=== PATIENT | male | born 1985 | race Caucasian/White ===

== ENCOUNTER 2018-09-26 09:52 | Inpatient (IN) ==
[2018-09-26] MEDS ORDERED: Ipratropium/Albuterol Neb 3 ML IH ONE (10:13)
--- NOTE | 2018-09-26 10:17 | Emergency Department Note ---
Disposition Clinical Impression: Leukocytosis Pneumonia Qualifiers: Pneumonia type: due to unspecified organism Laterality: right Lung location: lower lobe of lung Qualified Code(s): J18.9 - Pneumonia, unspecified organism Disposition: Admitted As Inpatient Condition: Fair Time of Disposition: 12:10 General Adult HPI - General Chief complaint: ED General Medical Stated complaint: "Not doing good" - think he has pneumonia? Time Seen by Provider: 09/26/18 10:09 - History of Present Illness HPI Narrative: Patient is a 31-year-old gentleman who is nonverbal who returned back to the [facility] where he lives at this weekend after being around some individuals had upper respiratory infection. Patient has had a runny nose has been coughing and the caregivers noticed that he had chills and was coughing continuously. They were concerned because he has had a prior episode of pneumonia in the past required admission. The patient has been less active than normal no vomiting no diarrhea no complaint of abdominal pain with this. Pain Scale: 0 - Related Data Home Medications Medication Instructions Recorded Confirmed Divalproex (24 HR) [Depakote ER 250 mg PO HS 11/21/15 09/26/18 (24 HR)] Divalproex Sodium [Depakote] 500 mg PO HS 11/21/15 09/26/18 lamoTRIgine [Lamictal] 75 mg PO QAM AND QHS 11/21/15 09/26/18 cloNIDine HCl [CloNIDine HCl] 0.1 mg PO QID 09/26/18 09/26/18 Allergies Allergy/AdvReac Type Severity Reaction Status Date / Time No Known Allergies Allergy Verified 11/21/15 12:07 All systems ED: reviewed and negative except as stated. Past Medical History - Past Medical History Attestation: Yes The following information was validated with the patient. Medical history: Reports: seizures, other (MRDD) Surgical history: Reports: no surgical history Psychiatric history: Reports: panic disorder - Social History Smoking Status: Never smoker Smokeless Tobacco Status: No Alcohol use: Reports: none Drug use: Reports: none Physical Exam General: Conversant and pleasant interactive and nontoxic. Head: Normocephalic/atraumatic Eyes:PERRLA, EOMI, no conjunctivitis Nares: Without d/c. Ears: No erythema or d/c noted. Oralpharnyx: P&MMM noted, Neck: Supple, no JVD or PACKAGING ASSOCIATE noted. Cardovascular: regular rate and rhythm without murmur, brisk capillary refill, no peripheral edema. Lungs: Clear to ascultation bilaterally, non-labored Abd: Soft nontender, Non Distended, no guarding, no rebound. : Defered Extremities: moves all extremities equally Neuro: Alert at baseline, nonverbal, no obvious gross neuro deficit Psych: Normal Affect Derm: No rash noted Course Vital Signs Temperature 98.5 F 09/26/18 10:00 Pulse Rate 119 09/26/18 10:00 Respiratory Rate 18 09/26/18 10:00 Blood Pressure 123/79 09/26/18 10:00 O2 Sat by Pulse Oximetry 89 09/26/18 10:00 Temperature 100.5 F H 09/26/18 18:38 Pulse Rate 96 09/26/18 18:38 Respiratory Rate 16 09/26/18 18:38 Blood Pressure 118/80 09/26/18 18:38 O2 Sat by Pulse Oximetry 96 09/26/18 18:38 Oxygen Delivery Oxygen Delivery Nasal Cannula Medical Decision Making - Lab Data Result diagrams: 09/26/18 10:20 09/26/18 10:20 Lab Results 09/26/18 09/26/18 09/26/18 Range/Units 10:20 10:20 10:20 WBC 19.6 H (4.3-11.1) K/mcL RBC 4.93 (4.19-5.50) M/mcL Hgb 13.6 (12.9-16.9) g/dL Hct 41.3 (37.5-50.1) % MCV 83.8 (83.0-100.0) fL MCH 27.6 L (28.0-33.3) pg MCHC 32.9 (31.6-35.5) g/dL RDW 13.2 (11.5-14.5) % Plt Count 210 (140-400) K/mcL MPV 8.8 L (9.4-12.4) fL Immature Gran % 0.5 (0-4) % Seg Neutrophils % 85.1 % Lymphocytes % 8.1 % Monocytes % 6.2 % Eosinophils % 0.0 % Basophils % 0.1 % Neutrophils # 16.6 H (1.6-8.9) K/mcL Lymphocytes # 1.6 (0.6-4.6) K/mcL Monocytes # 1.2 (0.0-1.3) K/mcL Eosinophils # 0.0 (0.0-0.6) K/mcL Basophils # 0.0 (0.0-0.2) K/mcL PT 15.4 H (9.4-12.1) Seconds INR 1.4 APTT 35.4 (26.0-36.0) Seconds ABG pH (7.32-7.45) pH Units ABG pCO2 (35-45) mmHg ABG pO2 (85-104) mmHg ABG HCO3 (21-27) mEq/L ABG Total CO2 (20-26) mEq/L ABG O2 Saturation (95-98) % ABG Base Excess (-2 to 3) mEq/L O2 Delivery Device Inspired O2 (1-15=lpm [id number]=%) Sodium 138 (136-145) mEq/L Potassium 3.9 (3.5-5.1) mEq/L Chloride 98 (98-107) mEq/L Carbon Dioxide 27 (23-29) mEq/L BUN 20 (6-20) mg/dL Creatinine 1.04 (0.70-1.30) mg/dL Est GFR ( Amer) > 60 (> 60) Est GFR (Non-Af Amer) > 60 (> 60) BUN/Creatinine Ratio 19 (6-26) Glucose 109 H (70-105) mg/dL Calculated Osmolality 289 (280-300) Lactic Acid (0.5-2.2) mmol/L Calcium 9.1 (8.6-10.3) mg/dL Total Bilirubin 0.8 (0.3-1.0) mg/dL Direct Bilirubin 0.2 (0.0-0.2) mg/dL Indirect Bilirubin 0.6 (0.0-1.2) mg/dL AST 13 (13-39) Units/L ALT 8 (7-52) Units/L Alkaline Phosphatase 49 (34-104) Units/L Troponin I < 0.03 (< 0.04) ng/mL B-Natriuretic Peptide (Less than 100) pg/mL Serum Total Protein 7.7 (6.4-8.9) g/dL Albumin 3.9 (3.5-5.7) g/dL Globulin 3.8 H (2.4-3.5) g/dL Albumin/Globulin Ratio 1.0 L (1.1-2.2) 09/26/18 09/26/18 09/26/18 Range/Units 10:20 10:20 11:00 WBC (4.3-11.1) K/mcL RBC (4.19-5.50) M/mcL Hgb (12.9-16.9) g/dL Hct (37.5-50.1) % MCV (83.0-100.0) fL MCH (28.0-33.3) pg MCHC (31.6-35.5) g/dL RDW (11.5-14.5) % Plt Count (140-400) K/mcL MPV (9.4-12.4) fL Immature Gran % (0-4) % Seg Neutrophils % % Lymphocytes % % Monocytes % % Eosinophils % % Basophils % % Neutrophils # (1.6-8.9) K/mcL Lymphocytes # (0.6-4.6) K/mcL Monocytes # (0.0-1.3) K/mcL Eosinophils # (0.0-0.6) K/mcL Basophils # (0.0-0.2) K/mcL PT (9.4-12.1) Seconds INR APTT (26.0-36.0) Seconds ABG pH 7.44 (7.32-7.45) pH Units ABG pCO2 46 H (35-45) mmHg ABG pO2 84 L (85-104) mmHg ABG HCO3 31 H (21-27) mEq/L ABG Total CO2 32 H (20-26) mEq/L ABG O2 Saturation 97 (95-98) % ABG Base Excess 6 H (-2 to 3) mEq/L O2 Delivery Device Cannula Inspired O2 28.0 (1-15=lpm [id number]=%) Sodium (136-145) mEq/L Potassium (3.5-5.1) mEq/L Chloride (98-107) mEq/L Carbon Dioxide (23-29) mEq/L BUN (6-20) mg/dL Creatinine (0.70-1.30) mg/dL Est GFR ( Amer) (> 60) Est GFR (Non-Af Amer) (> 60) BUN/Creatinine Ratio (6-26) Glucose (70-105) mg/dL Calculated Osmolality (280-300) Lactic Acid 1.6 (0.5-2.2) mmol/L Calcium (8.6-10.3) mg/dL Total Bilirubin (0.3-1.0) mg/dL Direct Bilirubin (0.0-0.2) mg/dL Indirect Bilirubin (0.0-1.2) mg/dL AST (13-39) Units/L ALT (7-52) Units/L Alkaline Phosphatase (34-104) Units/L Troponin I (< 0.04) ng/mL B-Natriuretic Peptide 150 H (Less than 100) pg/mL Serum Total Protein (6.4-8.9) g/dL Albumin (3.5-5.7) g/dL Globulin (2.4-3.5) g/dL Albumin/Globulin Ratio (1.1-2.2)
[2018-09-26 10:33] LABS: Basophils % 0.1 %; Hematocrit 41.3 % (37.5-50.1); Hemoglobin 13.6 g/dL (12.9-16.9); Immature Granulocytes % 0.5 % (0-4); Lymphocytes # 1.6 K/mcL (0.6-4.6); Lymphocytes % 8.1 %; Mean Corpuscular HGB Conc 32.9 g/dL (31.6-35.5); Mean Corpuscular Hemoglobin 27.6 pg (28.0-33.3); Mean Corpuscular Volume 83.8 fL (83.0-100.0); Mean Platelet Volume 8.8 fL (9.4-12.4); Monocytes # 1.2 K/mcL (0.0-1.3); Monocytes % 6.2 %; Neutrophils # 16.6 K/mcL (1.6-8.9); Platelet Count 210 K/mcL (140-400); Red Blood Count 4.93 M/mcL (4.19-5.50); Red Cell Distribution Width 13.2 % (11.5-14.5); Segmented Neutrophils % 85.1 %; White Blood Count 19.6 K/mcL (4.3-11.1)
[2018-09-26 10:43] LABS: INR 1.4; Prothrombin Time 15.4 Seconds (9.4-12.1)
[2018-09-26 10:46] LABS: Activated Partial Thrombo Time 35.4 Seconds (26.0-36.0)
[2018-09-26 10:55] LABS: Alanine Aminotransferase 8 Units/L (7-52); Albumin 3.9 g/dL (3.5-5.7); Alkaline Phosphatase 49 Units/L (34-104); Aspartate Amino Transferase 13 Units/L (13-39); BUN/Creatinine Ratio 19 (6-26); Bilirubin,Direct 0.2 mg/dL (0.0-0.2); Bilirubin,Indirect 0.6 mg/dL (0.0-1.2); Bilirubin,Total 0.8 mg/dL (0.3-1.0); Blood Urea Nitrogen 20 mg/dL (6-20); Calcium 9.1 mg/dL (8.6-10.3); Carbon Dioxide 27 mEq/L (23-29); Chloride 98 mEq/L (98-107); Globulin 3.8 g/dL (2.4-3.5); Glucose 109 mg/dL (70-105); Osmolality,Calculated 289 (280-300); Potassium 3.9 mEq/L (3.5-5.1); Sodium 138 mEq/L (136-145); Total Protein 7.7 g/dL (6.4-8.9); eGFR For African Americans > 60 (> 60); eGFR For Non-African Americans > 60 (> 60)
[2018-09-26 10:56] LABS: Troponin I < 0.03 ng/mL (< 0.04)
[2018-09-26 11:06] LABS: ABG Base Excess 6 mEq/L (-2 to 3); ABG HCO3 31 mEq/L (21-27); ABG Oxygen Saturation 97 % (95-98); ABG PCO2 46 mmHg (35-45); ABG PH 7.44 pH Units (7.32-7.45); ABG PO2 84 mmHg (85-104); ABG TCO2 32 mEq/L (20-26)
[2018-09-26] MEDS ORDERED: Azithromycin 500 MG in D5% in Water 250 ML IVPB ONE (11:57)
[2018-09-26] MEDS ORDERED: cefTRIAXone 1,000 MG in Water for inj. (sterile) 10 ML IVP ONE (11:57)
[2018-09-26] MEDS ORDERED: Clindamycin 900 MG/50 ML 900 MG/50 ML IV.SOLN IVPB ONE (12:10)
--- NOTE | 2018-09-26 13:46 | Internal Med History&Physical ---
Date of Encounter: 09/29/18 Time of Encounter: 13:46 Internal Medicine - H&P: HPI Chief complaint: Cough History of present illness: Mr. Petersen is a 30 year old male with past medical history of mental retardation and seizure disorder who presented with productive cough and chills as per his caregiver. The patient is nonverbal and no further history was able to be obta ined. The patient was evaluated by the ER and CXR revealed pneumonia. Reviewing the patient records revealed he was diagnosed with sepsis due to aspiration pneumonia that was complicated by right sided pleural effusion in 2018. The patient was treated by antibiotics and recommendation was to place a peg tube for future feeding however his power of transactional attorney declined. The patient was discharged on Augmentin and Bactrim for 10 days due to the high risk of aspiration pneumonia and repeat CAT scan was recommended in [address] scan of the chest revealed Dense consolidation in the left lower lobe medially. Patchy infiltrates in the right upper lobe as well. Findings suggests pneumonia. Family at bed side stated that the patient has to be spoon fed. Past Med Surg Social Fam HX - Past Medical History Medical history: seizures, other Additional medical history: MRDD Psychiatric history: panic disorder - Past Surgical History Surgical History: no surgical history - Social History Smoking Status: Never smoker Smokeless Tobacco Status: No Alcohol use: none Drug use: none - Family History Mother Living Status: Age at : 55 Cause of : Ovarian Cancer Hx Family Cardiac Disorders: No Hx Family Respiratory Disorders: No Hx Family Cancer: Yes (Ovarian) Hx Family GI Disorders: No Hx Family Genitourinary Disorders: No Hx Family Endocrine Disorder: Yes (Diabetes) Hx Family Musculoskeletal Disorders: No Hx Family Neuromuscular Disorders: No Hx Family Neurologic Disorders: No Hx Family HEENT Disorders: No Hx Family Autoimmune Disorders: No Hx Family Reproductive Disorders: No Hx Family Psychosocial Disorders: No Hx Family Medical Disorders: No Internal Medicine - H&P: Meds Divalproex (24 HR) [Depakote ER (24 HR)] 250 mg PO HS 11/21/15 [History] Divalproex Sodium [Depakote] 500 mg PO HS 11/21/15 [History] lamoTRIgine [Lamictal] 75 mg PO QAM AND QHS 11/21/15 [History] cloNIDine HCl [CloNIDine HCl] 0.1 mg PO QID 09/26/18 [History] Allergy/AdvReac Type Severity Reaction Status Date / Time No Known Allergies Allergy Verified 11/21/15 12:07 All Systems PM: A 10-system review of systems was performed and is negative for pertinent findings except as documented above in the HPI. - Constitutional Vitals: Temp Pulse Resp BP Pulse Ox 99.5 F 89 20 100/75 98 09/26/18 10:31 09/26/18 12:40 09/26/18 12:40 09/26/18 12:00 09/26/18 12:40 Exam: . - Head Head exam: Present: atraumatic, normocephalic - Neck Neck exam general surgery: Present: supple, trachea midline. Absent: lymphadenopathy - Respiratory Respiratory exam: Present: rhonchi. Absent: accessory muscle use, rales - GI/Abdominal GI/Abdominal exam: Present: normal bowel sounds, soft, no peritoneal signs. Absent: distended, tenderness - Extremities Exam Extremities exam: Present: warm, radial pulses palpable and symmetrical. Absent: calf tenderness, cyanotic, pedal edema Internal Med - H&P Results - Labs CBC & Chem 7: 09/29/18 05:00 09/29/18 05:00 Labs: Short CBC 09/26/18 Range/Units 10:20 WBC 19.6 H (4.3-11.1) K/mcL Hgb 13.6 (12.9-16.9) g/dL Hct 41.3 (37.5-50.1) % Plt Count 210 (140-400) K/mcL Neutrophils # 16.6 H (1.6-8.9) K/mcL BMP 09/26/18 10:20 Sodium 138 Potassium 3.9 Chloride 98 Carbon Dioxide 27 BUN 20 Creatinine 1.04 Glucose 109 H Calcium 9.1 Cardiac Enzymes 09/26/18 Range/Units 10:20 Troponin I < 0.03 (< 0.04) ng/mL Liver Function 09/26/18 Range/Units 10:20 Total Bilirubin 0.8 (0.3-1.0) mg/dL Direct Bilirubin 0.2 (0.0-0.2) mg/dL AST 13 (13-39) Units/L ALT 8 (7-52) Units/L Alkaline Phosphatase 49 (34-104) Units/L Albumin 3.9 (3.5-5.7) g/dL - ABG Interpretation ABG results: 09/26/18 11:00 ABG pH 7.44 ABG pCO2 46 H ABG pO2 84 L ABG HCO3 31 H ABG Total CO2 32 H ABG O2 Saturation 97 ABG Base Excess 6 H - Impressions ITS Impressions Chest X-Ray 09/26/18 10:14 IMPRESSION: Perihilar and asymmetric infrahilar opacity at the left lung base suggestive of pneumonia. Recommend follow-up to resolution. D/ 09/26/2018 12:02:13 Jorje Salguero MD / ed Interpreting Provider: Jorje Salguero MD - Assessment and Plan (1) Pneumonia Current Visit: Yes Status: Acute Assessment and plan: Persistent cough due to Pneumonia - Blood Cx - Urine Legionella antigen - Antibiotics - CBCD, CMP in AM - Tylenol 650 mg PO q 4-6 hr PRN pain or fever Qualifiers: Pneumonia type: aspiration pneumonia Aspiration pneumonia type: due to regurgitated food Laterality: left Lung location: lower lobe of lung Qualified Code(s): J69.0 - Pneumonitis due to inhalation of food and vomit (2) Seizure disorder Current Visit: Yes Status: Chronic Assessment and plan: We will cont. home meds (3) Normocytic anemia Current Visit: Yes Status: Chronic Assessment and plan: Hgb stable, will cont. monitor H&H. (4) Mental retardation Current Visit: Yes Status: Chronic (5) Malnutrition Current Visit: Yes Status: Acute Assessment and plan: Recommendation was to place a peg tube for future feeding onn prior admission was declined by his power of transactional attorney declined. Qualifiers: Qualified Code(s): E46 - Unspecified protein-calorie malnutrition (6) DVT prophylaxis Current Visit: Yes Status: Acute Assessment and plan: We will place SCDs - Time Spent With Patient Total time spent is greater than 50% in coordination of care (as documented) at patient's floor/unit and/or counseling patient:
[2018-09-26] MEDS ORDERED: Ondansetron 4 MG/2 ML VIAL IVP PRN (16:01)
[2018-09-26] MEDS ORDERED: Naloxone 0.4 MG/ML INJ IVP PRN (16:01)
[2018-09-26] MEDS ORDERED: *HR* HYDROcodone/Acet 5/325 mg TABLET PO PRN (16:01)
[2018-09-26] MEDS: 0.9 % Sodium Chloride 1,000 ML IVC SCH (18:18)
[2018-09-26] MEDS: *HR* Heparin 5,000 UNIT/ML VIAL SQ SCH (18:18)
[2018-09-26] MEDS: Acetaminophen 325 MG TABLET PO PRN (22:08)
[2018-09-26] MEDS ORDERED: Acetaminophen IV 500 MG/50 ML INFUS..BTL IVPB ONE (22:22)
[2018-09-26] MEDS: Divalproex (24 HR) 250 MG TABLET PO SCH (23:01)
[2018-09-26] MEDS: lamoTRIgine 25 MG TABLET PO SCH (23:02)
[2018-09-27] MEDS ORDERED: Acetaminophen IV 500 MG/50 ML INFUS..BTL IVPB ONE (00:42)
[2018-09-27] MEDS ORDERED: cefTRIAXone 2,000 MG in Water for inj. (sterile) 20 ML IVP SCH (03:00)
[2018-09-27] MEDS ORDERED: cefTRIAXone 2,000 MG in Water for inj. (sterile) 20 ML IVPB SCH (03:00)
[2018-09-27] MEDS: 0.9 % Sodium Chloride 1,000 ML IVC SCH (04:26)
[2018-09-27 05:29] LABS: Basophils % 0.1 %; Eosinophils % 0.2 %; Hematocrit 41.2 % (37.5-50.1); Hemoglobin 13.2 g/dL (12.9-16.9); Immature Granulocytes % 0.3 % (0-4); Lymphocytes # 1.4 K/mcL (0.6-4.6); Lymphocytes % 11.2 %; Mean Corpuscular Hemoglobin 27.6 pg (28.0-33.3); Mean Corpuscular Volume 86.2 fL (83.0-100.0); Monocytes # 0.8 K/mcL (0.0-1.3); Monocytes % 6.9 %; Neutrophils # 9.8 K/mcL (1.6-8.9); Platelet Count 164 K/mcL (140-400); Red Blood Count 4.78 M/mcL (4.19-5.50); Red Cell Distribution Width 12.9 % (11.5-14.5); Segmented Neutrophils % 81.3 %; White Blood Count 12.1 K/mcL (4.3-11.1)
[2018-09-27 05:35] LABS: INR 1.3
[2018-09-27 05:38] LABS: Activated Partial Thrombo Time 31.8 Seconds (26.0-36.0)
[2018-09-27 05:49] LABS: Alanine Aminotransferase 6 Units/L (7-52); Albumin 3.6 g/dL (3.5-5.7); Alkaline Phosphatase 52 Units/L (34-104); Aspartate Amino Transferase 16 Units/L (13-39); BUN/Creatinine Ratio 20 (6-26); Bilirubin,Total 0.4 mg/dL (0.3-1.0); Blood Urea Nitrogen 16 mg/dL (6-20); Carbon Dioxide 29 mEq/L (23-29); Chloride 98 mEq/L (98-107); Chol/HDL Ratio 2.7 (0-4.9); Cholesterol 104 mg/dL (< 200); Globulin 3.6 g/dL (2.4-3.5); Glucose 84 mg/dL (70-105); HDL Cholesterol 38 mg/dL (40-59); LDL Cholesterol,Calculated 52 mg/dL (0-99); Magnesium 1.7 mg/dL (1.6-2.6); Osmolality,Calculated 286 (280-300); Phosphorous 3.5 mg/dL (2.7-4.5); Potassium 4.4 mEq/L (3.5-5.1); Sodium 138 mEq/L (136-145); Total Protein 7.2 g/dL (6.4-8.9); Triglycerides 71 mg/dL (< 150); eGFR For African Americans > 60 (> 60); eGFR For Non-African Americans > 60 (> 60)
[2018-09-27] MEDS: *HR* Heparin 5,000 UNIT/ML VIAL SQ SCH ×2 (06:01→17:21)
[2018-09-27] MEDS ORDERED: Clindamycin 600 MG/50 ML 600 MG/50 ML IV.SOLN IVPB SCH (08:00)
--- NOTE | 2018-09-27 08:05 | Internal Med Progress Note ---
Hospitalist Progress Note - Encounter Date of Encounter: 09/27/18 Time of Encounter: 16:00 - Subjective Interval History: No acute events overnight - Exam Vitals: Temp Pulse Resp BP Pulse Ox 99.0 F 54 16 130/83 99 09/27/18 06:33 09/27/18 06:33 09/27/18 06:33 09/27/18 06:33 09/27/18 06:33 Exam: Gen. Pt is non verbal at baseline. Alert CVS. S1 S2 WNL Resp CTAB GI. SOft, NT, ND, +BS EXt. 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 GCS 11. VR 1 - Assessment and Plan (1) Sepsis Current Visit: Yes Status: Acute Assessment and Plan: Pt came in with sepsis secondary to pneumonia with leukocytosis and a fever of 101 Continue zosyn and azithromycin Follow cultures (2) Pneumonia Current Visit: Yes Status: Acute Assessment and Plan: Patient comes in with cough and leukocytosis likely secondary to bacterial HCAP Continue zosyn and azithromycin. Follow cultures (3) Normocytic anemia Current Visit: Yes Status: Chronic Assessment and Plan: Hgb stable, will cont. monitor H&H. (4) Seizure disorder Current Visit: Yes Status: Chronic Assessment and Plan: Continue depakote (5) Mental retardation Current Visit: Yes Status: Chronic Assessment and Plan: Stable. No acute intervention (6) Malnutrition Current Visit: Yes Status: Acute Assessment and Plan: Recommendation was to place a peg tube for future feeding onn prior admission was declined by his power of workers compensation defense attorney declined. (7) DVT prophylaxis Current Visit: Yes Status: Acute Assessment and Plan: On SCDs - Time Spent with Patient Total time spent is greater than 50% in coordination of care (as documented) at patient's floor/unit and/or counseling patient: Internal Medicine: Result - Labs CBC & Chem 7: 09/27/18 05:05 09/27/18 05:05 Labs: Short CBC 09/26/18 09/27/18 Range/Units 10:20 05:05 WBC 19.6 H 12.1 H (4.3-11.1) K/mcL Hgb 13.6 13.2 (12.9-16.9) g/dL Hct 41.3 41.2 (37.5-50.1) % Plt Count 210 164 (140-400) K/mcL Neutrophils # 16.6 H 9.8 H (1.6-8.9) K/mcL BMP 09/26/18 09/27/18 10:20 05:05 Sodium 138 138 Potassium 3.9 4.4 Chloride 98 98 Carbon Dioxide 27 29 BUN 20 16 Creatinine 1.04 0.81 Glucose 109 H 84 Calcium 9.1 9.0 Cardiac Enzymes 09/26/18 Range/Units 10:20 Troponin I < 0.03 (< 0.04) ng/mL Liver Function 09/26/18 09/27/18 Range/Units 10:20 05:05 Total Bilirubin 0.8 0.4 (0.3-1.0) mg/dL Direct Bilirubin 0.2 (0.0-0.2) mg/dL AST 13 16 (13-39) Units/L ALT 8 6 L (7-52) Units/L Alkaline Phosphatase 49 52 (34-104) Units/L Albumin 3.9 3.6 (3.5-5.7) g/dL - ABG Interpretation ABG results: ABG ABG pH 7.44 pH Units (7.32-7.45) 09/26/18 11:00 ABG pCO2 46 mmHg (35-45) H 09/26/18 11:00 ABG pO2 84 mmHg (85-104) L 09/26/18 11:00 ABG O2 Saturation 97 % (95-98) 09/26/18 11:00 PT/INR, D-dimer PT 15.0 Seconds (9.4-12.1) H 09/27/18 05:05 - Impressions Impressions Chest X-Ray 09/26/18 10:14 IMPRESSION: Perihilar and asymmetric infrahilar opacity at the left lung base suggestive of pneumonia. Recommend follow-up to resolution. D/ / 09/26/2018 12:02:13 Jorje Salguero MD / ed Interpreting Provider: Jorje Salguero MD Chest CT 09/26/18 16:19 IMPRESSION: Dense consolidation in the left lower lobe medially. Patchy infiltrates in the right upper lobe as well. Findings suggests pneumonia. However, follow-up CT is suggested to ensure complete resolution D/ / Vasquez Winter MD / Vasquez Winter MD Interpreting Provider: Vasquez Winter MD Consult Discharge Plan - Plan Referrals: Daniel Hester MD [Primary Care Provider] - (2) Pneumonia Qualifiers: Pneumonia type: aspiration pneumonia Laterality: right Lung location: lower lobe of lung (6) Malnutrition Qualifiers: Qualified Code(s): E46 - Unspecified protein-calorie malnutrition
[2018-09-27] MEDS: lamoTRIgine 25 MG TABLET PO SCH ×2 (08:50→21:09)
[2018-09-27] MEDS ORDERED: Azithromycin 500 MG in D5% in Water 250 ML IVPB SCH (09:00)
[2018-09-27] MEDS ORDERED: Piperacillin/Tazobactam 3.375 GM VIAL ONE (09:49)
[2018-09-27] MEDS: Piperacillin/Tazobactam 3.375 GM in 0.9 % Sodium Chloride Mini Bag 100 ML IVPB SCH ×2 (09:59→17:21)
[2018-09-27] MEDS: Azithromycin 500 MG in D5% in Water 250 ML IVPB SCH (14:26)
[2018-09-27] MEDS: cloNIDine HCl 0.1 MG TABLET PO SCH ×2 (14:27→21:12)
--- NOTE | 2018-09-27 16:04 | Electrocardiograph Report ---
[address] [address] Test Date: 2018-09-26 Pat Name: Timoteo Petersen Department: [id number] Room: 3A13 Gender: M Wood Polisher: : 1985 Requested By: Lawrence Dominguez Order Number: [id number] Reading MD: Ash Jones Measurements Intervals [place] Rate: 94 P: 71 [place]: 145 QRS: 41 QRSD: 82 T: 65 QT: 353 QTc: 442 Interpretive Statements Sinus rhythm Consider right atrial enlargement ST elev, probable normal early repol pattern Electronically Signed On 09-27-2018 16:02:34 EDT by Ash Jones
[2018-09-27] MEDS: Divalproex (12 HR) 250 MG TABLET PO SCH (21:08)
[2018-09-27] MEDS: Divalproex (24 HR) 250 MG TABLET PO SCH (21:14)
[2018-09-28] MEDS: Piperacillin/Tazobactam 3.375 GM in 0.9 % Sodium Chloride Mini Bag 100 ML IVPB SCH ×3 (01:19→15:52)
[2018-09-28] MEDS: *HR* Heparin 5,000 UNIT/ML VIAL SQ SCH ×2 (03:47→17:32)
[2018-09-28] MEDS: cloNIDine HCl 0.1 MG TABLET PO SCH ×4 (03:52→22:14)
[2018-09-28 05:52] LABS: Basophils % 0.1 %; Eosinophils # 0.1 K/mcL (0.0-0.6); Hematocrit 37.1 % (37.5-50.1); Hemoglobin 12.3 g/dL (12.9-16.9); Immature Granulocytes % 0.3 % (0-4); Lymphocytes # 1.6 K/mcL (0.6-4.6); Lymphocytes % 18.2 %; Mean Corpuscular HGB Conc 33.2 g/dL (31.6-35.5); Mean Corpuscular Hemoglobin 28.3 pg (28.0-33.3); Mean Corpuscular Volume 85.5 fL (83.0-100.0); Mean Platelet Volume 9.4 fL (9.4-12.4); Monocytes # 0.9 K/mcL (0.0-1.3); Monocytes % 10.5 %; Neutrophils # 6.1 K/mcL (1.6-8.9); Platelet Count 192 K/mcL (140-400); Red Blood Count 4.34 M/mcL (4.19-5.50); Red Cell Distribution Width 12.7 % (11.5-14.5); Segmented Neutrophils % 69.9 %; White Blood Count 8.8 K/mcL (4.3-11.1)
[2018-09-28 06:12] LABS: BUN/Creatinine Ratio 9 (6-26); Blood Urea Nitrogen 8 mg/dL (6-20); Calcium 8.9 mg/dL (8.6-10.3); Carbon Dioxide 29 mEq/L (23-29); Chloride 98 mEq/L (98-107); Glucose 96 mg/dL (70-105); Magnesium 1.5 mg/dL (1.6-2.6); Osmolality,Calculated 282 (280-300); Phosphorous 3.1 mg/dL (2.7-4.5); Sodium 137 mEq/L (136-145); eGFR For African Americans > 60 (> 60); eGFR For Non-African Americans > 60 (> 60)
--- NOTE | 2018-09-28 08:07 | Internal Med Progress Note ---
Hospitalist Progress Note - Encounter Date of Encounter: 09/28/18 Time of Encounter: 08:00 - Subjective Interval History: No acute events overnight - Exam Vitals: Temp Pulse Resp BP Pulse Ox 100.1 F H 62 16 104/61 92 09/28/18 06:38 09/28/18 06:38 09/28/18 06:38 09/28/18 06:38 09/28/18 06:38 Exam: Gen. Pt is non verbal at baseline. Alert CVS. S1 S2 WNL Resp CTAB GI. SOft, NT, ND, +BS EXt. 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 GCS 11. VR 1 - Assessment and Plan (1) Sepsis Current Visit: Yes Status: Acute Assessment and Plan: Pt came in with sepsis secondary to pneumonia with leukocytosis and a fever of 101 Continue zosyn and azithromycin Tmax of 100.7 in last 24hrs. Continue present regimen (2) Pneumonia Current Visit: Yes Status: Acute Assessment and Plan: Patient comes in with cough and leukocytosis likely secondary to bacterial HCAP Continue zosyn and azithromycin. Follow cultures (3) Normocytic anemia Current Visit: Yes Status: Chronic Assessment and Plan: Hgb stable, will cont. monitor H&H. (4) Seizure disorder Current Visit: Yes Status: Chronic Assessment and Plan: Continue depakote (5) Mental retardation Current Visit: Yes Status: Chronic Assessment and Plan: Stable. No acute intervention (6) Malnutrition Current Visit: Yes Status: Acute Assessment and Plan: Recommendation was to place a peg tube for future feeding onn prior admission was declined by his power of attorney recruiter declined. (7) DVT prophylaxis Current Visit: Yes Status: Acute Assessment and Plan: On SCDs - Time Spent with Patient Total time spent is greater than 50% in coordination of care (as documented) at patient's floor/unit and/or counseling patient: Internal Medicine: Result - Labs CBC & Chem 7: 09/28/18 04:54 09/28/18 04:54 Labs: Short CBC 09/28/18 Range/Units 04:54 WBC 8.8 (4.3-11.1) K/mcL Hgb 12.3 L (12.9-16.9) g/dL Hct 37.1 L (37.5-50.1) % Plt Count 192 (140-400) K/mcL Neutrophils # 6.1 (1.6-8.9) K/mcL BMP 09/28/18 04:54 Sodium 137 Potassium 4.0 Chloride 98 Carbon Dioxide 29 BUN 8 Creatinine 0.85 Glucose 96 Calcium 8.9 - ABG Interpretation ABG results: ABG ABG pH 7.44 pH Units (7.32-7.45) 09/26/18 11:00 ABG pCO2 46 mmHg (35-45) H 09/26/18 11:00 ABG pO2 84 mmHg (85-104) L 09/26/18 11:00 ABG O2 Saturation 97 % (95-98) 09/26/18 11:00 PT/INR, D-dimer PT 15.0 Seconds (9.4-12.1) H 09/27/18 05:05 Consult Discharge Plan - Plan Referrals: Daniel Hester MD [Primary Care Provider] - (2) Pneumonia Qualifiers: Pneumonia type: aspiration pneumonia Laterality: right Lung location: lower lobe of lung (6) Malnutrition Qualifiers: Qualified Code(s): E46 - Unspecified protein-calorie malnutrition
[2018-09-28] MEDS ORDERED: Ipratropium/Albuterol Neb 3 ML IH PRN (08:14)
[2018-09-28] MEDS: lamoTRIgine 25 MG TABLET PO SCH ×2 (08:51→20:11)
[2018-09-28] MEDS ORDERED: GuaiFENesin Liq 200 MG/10 ML UDC PO PRN (09:17)
[2018-09-28] MEDS ORDERED: Benzonatate 100 MG CAPSULE PO PRN (09:19)
[2018-09-28] MEDS: Acetaminophen 325 MG TABLET PO PRN (10:36)
[2018-09-28] MEDS: Azithromycin 500 MG in D5% in Water 250 ML IVPB SCH (14:10)
[2018-09-28] MEDS: Divalproex (24 HR) 250 MG TABLET PO SCH (20:12)
[2018-09-28] MEDS: Divalproex (12 HR) 250 MG TABLET PO SCH (20:12)
[2018-09-29] MEDS: Piperacillin/Tazobactam 3.375 GM in 0.9 % Sodium Chloride Mini Bag 100 ML IVPB SCH ×3 (00:47→17:05)
[2018-09-29] MEDS: cloNIDine HCl 0.1 MG TABLET PO SCH ×5 (04:23→21:55)
[2018-09-29 05:22] LABS: Basophils % 0.1 %; Eosinophils # 0.1 K/mcL (0.0-0.6); Eosinophils % 0.9 %; Hematocrit 37.5 % (37.5-50.1); Hemoglobin 12.4 g/dL (12.9-16.9); Immature Granulocytes % 0.3 % (0-4); Lymphocytes # 1.6 K/mcL (0.6-4.6); Lymphocytes % 16.6 %; Mean Corpuscular HGB Conc 33.1 g/dL (31.6-35.5); Mean Corpuscular Hemoglobin 27.9 pg (28.0-33.3); Mean Corpuscular Volume 84.3 fL (83.0-100.0); Monocytes # 1.1 K/mcL (0.0-1.3); Monocytes % 11.4 %; Platelet Count 218 K/mcL (140-400); Red Blood Count 4.45 M/mcL (4.19-5.50); Red Cell Distribution Width 12.6 % (11.5-14.5); Segmented Neutrophils % 70.7 %; White Blood Count 9.9 K/mcL (4.3-11.1)
[2018-09-29] MEDS: *HR* Heparin 5,000 UNIT/ML VIAL SQ SCH ×2 (05:44→17:05)
[2018-09-29 05:45] LABS: BUN/Creatinine Ratio 11 (6-26); Blood Urea Nitrogen 9 mg/dL (6-20); Carbon Dioxide 27 mEq/L (23-29); Chloride 100 mEq/L (98-107); Glucose 113 mg/dL (70-105); Magnesium 1.6 mg/dL (1.6-2.6); Osmolality,Calculated 283 (280-300); Phosphorous 3.3 mg/dL (2.7-4.5); Potassium 3.8 mEq/L (3.5-5.1); Sodium 137 mEq/L (136-145); eGFR For African Americans > 60 (> 60); eGFR For Non-African Americans > 60 (> 60)
[2018-09-29] MEDS: lamoTRIgine 25 MG TABLET PO SCH ×3 (09:52→21:55)
[2018-09-29] MEDS ORDERED: Albuterol 2.5 MG/3 ML NEBULIZER IH ONE (10:21)
[2018-09-29] MEDS ORDERED: Acetylcysteine 10% 2 ML INHSOL IH ONE (10:21)
[2018-09-29] MEDS ORDERED: Acetaminophen IV 1,000 MG/100 ML INFUS..BTL IVPB ONE (14:09)
--- NOTE | 2018-09-29 14:09 | Pulmonology Consult Note ---
<Jordy Lopez Pam - Last Filed: 09/29/18 17:10> Date of Encounter: 09/29/18 Time of Encounter: 16:00 Assessment and Plan (1) Pneumonia Current Visit: Yes Status: Acute Presented with productive cough Tmax in last 24 hours was 100.8 despite IV Tylenol Imaging by both CXR and CT demonstrated left lower lobe consolidation Suspicious for aspiration pneumonia with history and mental status Empirically on Zosyn (Day 3) and Azithromycin (Day 4) Due to mental status, pt unable to tolerate aggressive pulmonary toilet and unable to obtain sputum culture currently. Will discuss bronchoscopy with pt's POA his father and tentatively plan for diagnostic and therapeutic bronchoscopy tomorrow morning. NPO after midnight. Qualifiers: Pneumonia type: aspiration pneumonia Aspiration pneumonia type: unspecified Laterality: left Lung location: lower lobe of lung Qualified Code(s): J69.0 - Pneumonitis due to inhalation of food and vomit (2) Mental retardation Current Visit: Yes Status: Chronic appears stable pt nonverbal at baseline History of Present Illness Consult date: 09/29/18 Requesting physician: Vita Page Reason for consult: pneumonia Chief complaint: Cough History of present illness: Mr Petersen is a 33M with PMH of MRDD and seizure disorder. He was admitted on 09/26/18 after presenting to the ED for complaints of productive cough and chills as reported by his 20/10 caregiver. Pt is noted to be nonverbal at baseline. In 2018 the patient was diagnosed with sepsis secondary to aspiration pneumonia, and during that admission a PEG tube was declined by the POA. CXR from [facility] ED demonstrated perihilar and asymmetric infrahilar opacity of the left lung base suggestive of pneumonia. CT chest also demonstrated dense consolidation in the left lower lobe suggesstive of pneumonia. Pt was initally afebrile, but tachycardic and tachypnic. Labs demonstrated a leukocytosis with WBC 19.6. Blood cultures were obtained and the patient was started on empiric Zosyn and azithro mycin. Follow up CXR on 09/28/18 demonstrated no significant interval change when compared to imaging from admission. Pulmonology was consulted on 09/29/18 for intermittent fevers and pneumonia. Pt seen and examined at bedside. Appears comfortable at this time. Further HPI unobtainable due to pt's baseline nonverbal status. Past Med Surg Social Fam HX - Past Medical History Medical history: seizures, other Additional medical history: MRDD Psychiatric history: panic disorder - Past Surgical History Surgical History: no surgical history - Social History Smoking Status: Never smoker Smokeless Tobacco Status: No Alcohol use: none Drug use: none - Family History Mother Living Status: Age at : 55 Cause of : Ovarian Cancer Hx Family Cardiac Disorders: No Hx Family Respiratory Disorders: No Hx Family Cancer: Yes (Ovarian) Hx Family GI Disorders: No Hx Family Genitourinary Disorders: No Hx Family Endocrine Disorder: Yes (Diabetes) Hx Family Musculoskeletal Disorders: No Hx Family Neuromuscular Disorders: No Hx Family Neurologic Disorders: No Hx Family HEENT Disorders: No Hx Family Autoimmune Disorders: No Hx Family Reproductive Disorders: No Hx Family Psychosocial Disorders: No Hx Family Medical Disorders: No Medications and Allergies Divalproex (24 HR) [Depakote ER (24 HR)] 250 mg PO HS 11/21/15 [History] Divalproex Sodium [Depakote] 500 mg PO HS 11/21/15 [History] lamoTRIgine [Lamictal] 75 mg PO QAM AND QHS 11/21/15 [History] cloNIDine HCl [CloNIDine HCl] 0.1 mg PO QID 09/26/18 [History] Allergy/AdvReac Type Severity Reaction Status Date / Time No Known Allergies Allergy Verified 11/21/15 12:07 ROS unobtainable: due to mental status All Systems: The remainder of the systems were reviewed and are negative Physical Examination Vital Signs: Vital Signs, Last 4 Hours Temp Pulse Resp BP Pulse Ox 09/29/18 14:00 100.8 F H 09/29/18 13:38 100.3 F H 102 16 143/80 92 09/29/18 11:12 17 97 09/29/18 10:20 99.4 F 69 16 134/85 92 General appearance: no acute distress, alert Eyes: nonicteric ENT: oropharynx dry Neck: no JVD Effort: normal Auscultation: bilateral: clear Cardiovascular: regular rate and rhythm Gastrointestinal: soft, non-tender, non-distended Integumentary: normal Extremities: no cyanosis, no edema, no clubbing, pink and warm, pulses normal Musculoskeletal: other (contracted extremities) unable to assess due to mental status Results - Laboratory Findings CBC and BMP: 07/03/19 05:00 09/29/18 05:00 ABG ABG pH 7.44 pH Units (7.32-7.45) 09/26/18 11:00 ABG pCO2 46 mmHg (35-45) H 09/26/18 11:00 ABG pO2 84 mmHg (85-104) L 09/26/18 11:00 ABG O2 Saturation 97 % (95-98) 09/26/18 11:00 PT/INR, D-dimer PT 15.0 Seconds (9.4-12.1) H 09/27/18 05:05 Abnormal lab findings: Abnormal lab results WBC 12.1 K/mcL (4.3-11.1) H 09/27/18 05:05 Hgb 12.4 g/dL (12.9-16.9) L 09/29/18 05:00 Hct 37.1 % (37.5-50.1) L 09/28/18 04:54 MCH 27.9 pg (28.0-33.3) L 09/29/18 05:00 MPV 9.0 fL (9.4-12.4) L 09/29/18 05:00 9.8 K/mcL (1.6-8.9) H 09/27/18 05:05 PT 15.0 Seconds (9.4-12.1) H 09/27/18 05:05 ABG pCO2 46 mmHg (35-45) H 09/26/18 11:00 ABG pO2 84 mmHg (85-104) L 09/26/18 11:00 ABG HCO3 31 mEq/L (21-27) H 09/26/18 11:00 ABG Total CO2 32 mEq/L (20-26) H 09/26/18 11:00 ABG Base Excess 6 mEq/L (-2 to 3) H 09/26/18 11:00 Glucose 113 mg/dL (70-105) H 09/29/18 05:00 Magnesium 1.5 mg/dL (1.6-2.6) L 09/28/18 04:54 ALT 6 Units/L (7-52) L 09/27/18 05:05 B-Natriuretic Peptide 150 pg/mL (Less than 100) H 09/26/18 10:20 3.6 g/dL (2.4-3.5) H 09/27/18 05:05 1.0 (1.1-2.2) L 09/27/18 05:05 38 mg/dL (40-59) L 09/27/18 05:05 - Microbiology Findings Microbiology Findings: Microbiology, Last 48 Hours 09/28/18 18:30 Legionella Antigen - Final Urine,Clean Catch Streptococcus pneumoniae Antigen (M - Final 09/28/18 11:05 Blood Culture - Preliminary Peripheral Venipuncture Culture is incubating and being continuously monitored for growth. Final report to follow. 09/28/18 11:10 Blood Culture - Preliminary Peripheral Venipuncture Culture is incubating and being continuously monitored for growth. Final report to follow. - Clinical Findings Intake & Output: Intake & Output 09/28/18 09/29/18 09/29/18 23:59 07:59 15:59 Intake Total 100 / 910 534 / 654 120 / 654 Balance 100 / 910 534 / 654 120 / 654 Weight 49 kg Consult Discharge Plan - Plan Referrals: Daniel Hester MD [Primary Care Provider] - <Kathleen Avalos S - Last Filed: 09/29/18 18:12> Date of Encounter: 09/29/18 All Systems: The remainder of the systems were reviewed and are negative Results - Laboratory Findings CBC and BMP: 09/29/18 05:00 09/29/18 05:00 ABG ABG pH 7.44 pH Units (7.32-7.45) 09/26/18 11:00 ABG pCO2 46 mmHg (35-45) H 09/26/18 11:00 ABG pO2 84 mmHg (85-104) L 09/26/18 11:00 ABG O2 Saturation 97 % (95-98) 09/26/18 11:00 PT/INR, D-dimer PT 15.0 Seconds (9.4-12.1) H 09/27/18 05:05 Abnormal lab findings: Abnormal lab results WBC 12.1 K/mcL (4.3-11.1) H 09/27/18 05:05 Hgb 12.4 g/dL (12.9-16.9) L 09/29/18 05:00 Hct 37.1 % (37.5-50.1) L 09/28/18 04:54 MCH 27.9 pg (28.0-33.3) L 09/29/18 05:00 MPV 9.0 fL (9.4-12.4) L 09/29/18 05:00 9.8 K/mcL (1.6-8.9) H 09/27/18 05:05 PT 15.0 Seconds (9.4-12.1) H 09/27/18 05:05 ABG pCO2 46 mmHg (35-45) H 09/26/18 11:00 ABG pO2 84 mmHg (85-104) L 09/26/18 11:00 ABG HCO3 31 mEq/L (21-27) H 09/26/18 11:00 ABG Total CO2 32 mEq/L (20-26) H 09/26/18 11:00 ABG Base Excess 6 mEq/L (-2 to 3) H 09/26/18 11:00 Glucose 113 mg/dL (70-105) H 09/29/18 05:00 Magnesium 1.5 mg/dL (1.6-2.6) L 09/28/18 04:54 ALT 6 Units/L (7-52) L 09/27/18 05:05 B-Natriuretic Peptide 150 pg/mL (Less than 100) H 09/26/18 10:20 3.6 g/dL (2.4-3.5) H 09/27/18 05:05 1.0 (1.1-2.2) L 09/27/18 05:05 38 mg/dL (40-59) L 09/27/18 05:05 0.63 ng/mL (0.00-0.15) H 09/29/18 14:22 - Microbiology Findings Microbiology Findings: Microbiology, Last 48 Hours 09/28/18 18:30 Legionella Antigen - Final Urine,Clean Catch Streptococcus pneumoniae Antigen (M - Final 09/28/18 11:05 Blood Culture - Preliminary Peripheral Venipuncture Culture is incubating and being continuously monitored for growth. Final report to follow. 09/28/18 11:10 Blood Culture - Preliminary Peripheral Venipuncture Culture is incubating and being continuously monitored for growth. Final report to follow. - Clinical Findings Intake & Output: Intake & Output 09/29/18 09/29/18 09/29/18 07:59 15:59 23:59 Intake Total 534 / 1104 320 / 1104 250 / 1104 Balance 534 / 1104 320 / 1104 250 / 1104 Weight 49 kg - Attending Attestation I saw and evaluated this patient and my medical decision-making was reviewed with the Resident Physician. I agree with the documented findings, disposition and treatment plan as described except to the extent set forth below. We independently had [id number] contact with the patient Patient seen and examined at bedside Labs, radiology, chart personally reviewed. Management was reviewed during multidisciplinary critical care rounds. Patient has cerebral palsy with high risk for aspiration with the largest for use percent left lower lobe pneumonia with lot of secretion the left lobar airways since patient has cerebral palsy patient cannot participate in bron chopulmonary toileting. Patient will be a difficult IV sedation will attempt bronchoscopy with anesthesia help. Will Keep NPO after Midnight.
--- NOTE | 2018-09-29 14:40 | Internal Med Progress Note ---
Hospitalist Progress Note - Encounter Date of Encounter: 09/29/18 Time of Encounter: 09:00 - Subjective Interval History: No acute events overnight. Pt continues to have intermittent fever spikes - Exam Vitals: Temp Pulse Resp BP Pulse Ox 100.8 F H 102 16 143/80 92 09/29/18 14:00 09/29/18 13:38 09/29/18 13:38 09/29/18 13:38 09/29/18 13:38 Exam: Gen. Pt is non verbal at baseline. Alert CVS. S1 S2 WNL Resp CTAB GI. 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 GCS 11. VR 1 - Assessment and Plan (1) Sepsis Current Visit: Yes Status: Acute Assessment and Plan: Pt came in with sepsis secondary to pneumonia with leukocytosis and a fever of 101 Continue zosyn and azithromycin Pt continues to have intermittent fever spikes with dense left lower lobe consolidation Pulmonary consulted and plan for bronchoscopy in am (2) Pneumonia Current Visit: Yes Status: Acute Assessment and Plan: Patient comes in with cough and leukocytosis likely secondary to bacterial HCAP Continue zosyn and azithromycin. Follow cultures Pulmonary consulted (3) Normocytic anemia Current Visit: Yes Status: Chronic Assessment and Plan: Hgb stable, will cont. monitor H&H. (4) Seizure disorder Current Visit: Yes Status: Chronic Assessment and Plan: Continue depakote (5) Mental retardation Current Visit: Yes Status: Chronic Assessment and Plan: Stable. No acute intervention (6) Malnutrition Current Visit: Yes Status: Acute Assessment and Plan: Recommendation was to place a peg tube for future feeding onn prior admission was declined by his power of telephone service representative declined. (7) DVT prophylaxis Current Visit: Yes Status: Acute Assessment and Plan: On SCDs - Time Spent with Patient Total time spent is greater than 50% in coordination of care (as documented) at patient's floor/unit and/or counseling patient: Internal Medicine: Result - Labs CBC & Chem 7: 09/29/18 05:00 09/29/18 05:00 Labs: Short CBC 09/29/18 Range/Units 05:00 WBC 9.9 (4.3-11.1) K/mcL Hgb 12.4 L (12.9-16.9) g/dL Hct 37.5 (37.5-50.1) % Plt Count 218 (140-400) K/mcL Neutrophils # 7.0 (1.6-8.9) K/mcL BMP 09/29/18 05:00 Sodium 137 Potassium 3.8 Chloride 100 Carbon Dioxide 27 BUN 9 Creatinine 0.79 Glucose 113 H Calcium 9.0 - ABG Interpretation ABG results: ABG ABG pH 7.44 pH Units (7.32-7.45) 09/26/18 11:00 ABG pCO2 46 mmHg (35-45) H 09/26/18 11:00 ABG pO2 84 mmHg (85-104) L 09/26/18 11:00 ABG O2 Saturation 97 % (95-98) 09/26/18 11:00 PT/INR, D-dimer PT 15.0 Seconds (9.4-12.1) H 09/27/18 05:05 Consult Discharge Plan - Plan Referrals: Daniel Hester MD [Primary Care Provider] - (2) Pneumonia Qualifiers: Pneumonia type: aspiration pneumonia Laterality: right Lung location: lower lobe of lung (6) Malnutrition Qualifiers: Qualified Code(s): E46 - Unspecified protein-calorie malnutrition
[2018-09-29] MEDS: Azithromycin 500 MG in D5% in Water 250 ML IVPB SCH (15:46)
[2018-09-29] MEDS: Divalproex (12 HR) 250 MG TABLET PO SCH ×2 (21:45→21:55)
[2018-09-29] MEDS: Divalproex (24 HR) 250 MG TABLET PO SCH ×2 (21:46→21:52)
[2018-09-30] MEDS: Piperacillin/Tazobactam 3.375 GM in 0.9 % Sodium Chloride Mini Bag 100 ML IVPB SCH ×3 (00:42→16:06)
[2018-09-30] MEDS: cloNIDine HCl 0.1 MG TABLET PO SCH ×5 (04:18→21:57)
[2018-09-30 04:20] LABS: Basophils % 0.3 %; Eosinophils # 0.1 K/mcL (0.0-0.6); Eosinophils % 1.5 %; Hematocrit 38.7 % (37.5-50.1); Hemoglobin 12.7 g/dL (12.9-16.9); Immature Granulocytes % 0.4 % (0-4); Lymphocytes # 1.7 K/mcL (0.6-4.6); Lymphocytes % 22.5 %; Mean Corpuscular HGB Conc 32.8 g/dL (31.6-35.5); Mean Corpuscular Hemoglobin 27.4 pg (28.0-33.3); Mean Corpuscular Volume 83.4 fL (83.0-100.0); Mean Platelet Volume 8.7 fL (9.4-12.4); Monocytes # 0.8 K/mcL (0.0-1.3); Neutrophils # 4.9 K/mcL (1.6-8.9); Platelet Count 242 K/mcL (140-400); Red Blood Count 4.64 M/mcL (4.19-5.50); Red Cell Distribution Width 12.8 % (11.5-14.5); Segmented Neutrophils % 65.3 %; White Blood Count 7.5 K/mcL (4.3-11.1)
[2018-09-30 04:28] LABS: INR 1.3; Prothrombin Time 14.2 Seconds (9.4-12.1)
[2018-09-30 04:36] LABS: BUN/Creatinine Ratio 9 (6-26); Blood Urea Nitrogen 7 mg/dL (6-20); Calcium 9.1 mg/dL (8.6-10.3); Carbon Dioxide 30 mEq/L (23-29); Chloride 100 mEq/L (98-107); Glucose 94 mg/dL (70-105); Magnesium 1.6 mg/dL (1.6-2.6); Osmolality,Calculated 290 (280-300); Potassium 4.1 mEq/L (3.5-5.1); Sodium 141 mEq/L (136-145); eGFR For African Americans > 60 (> 60); eGFR For Non-African Americans > 60 (> 60)
[2018-09-30 04:43] LABS: Platelet Estimate Normal (Normal)
[2018-09-30 04:45] LABS: Reactive Lymphocytes Present (Not Present)
[2018-09-30] MEDS: *HR* Heparin 5,000 UNIT/ML VIAL SQ SCH ×2 (05:10→18:35)
--- NOTE | 2018-09-30 07:16 | Anesthesia Evaluation PreOp ---
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: Seizures, Other (MRDD, Non Verbal) Other Medical History: Other (malnutrition) Alcohol Use: none Drug use: none Medications and Allergies Divalproex (24 HR) [Depakote ER (24 HR)] 250 mg PO HS 11/21/15 [History] Divalproex Sodium [Depakote] 500 mg PO HS 11/21/15 [History] lamoTRIgine [Lamictal] 75 mg PO QAM AND QHS 11/21/15 [History] cloNIDine HCl [CloNIDine HCl] 0.1 mg PO QID 09/26/18 [History] Allergy/AdvReac Type Severity Reaction Status Date / Time No Known Allergies Allergy Verified 11/21/15 12:07 - Meds/Allergy Pre-op Review Medications Reviewed: Yes Allergies Reviewed: Yes Beta Blockers on Current Med List: No Anesthesia Results - Labs 09/30/18 03:49 09/30/18 03:49 - Imaging EKG: report reviewed (Sinus rhythm Consider right atrial enlargement ST elev, probable normal early repol pattern Electronically Signed On 09-27-2018 16:02:34 EDT by Ash Jones) Anesthesia Exam Vital Signs/O2 Sat, Most Current Temp Pulse Resp BP Pulse Ox 98.3 F 58 16 113/71 95 09/30/18 06:32 09/30/18 06:32 09/30/18 06:32 09/30/18 06:32 09/30/18 06:32 NPO (# of Hours): > 8 Hrs Pain Scale: 0 Pain Scale Used: Numeric (1 - 10) Anesthesia Assess/Plan ASA Score: 3 Anesthetic Plan: General Autologous Blood: Yes Monitoring Plan: Standard Monitors Recovery Plan: PACU
[2018-09-30] MEDS ORDERED: Lidocaine -MPF 4% 5 ML AMPUL ONE (07:30)
[2018-09-30] MEDS ORDERED: *HR* Succinylcholine 200 MG/10 ML VIAL IVP ONE (07:30)
[2018-09-30] MEDS ORDERED: Lidocaine -MPF 2% 2 ML VIAL ONE (07:30)
[2018-09-30] MEDS ORDERED: Dexamethasone 4 MG/ML VIAL ONE (07:30)
[2018-09-30] MEDS ORDERED: Ondansetron 4 MG/2 ML VIAL ONE (07:30)
[2018-09-30] MEDS ORDERED: *HR* Propofol 200 MG/20 ML VIAL IVP ONE (07:32)
[2018-09-30] MEDS ORDERED: *HR* Midazolam HCl 2 MG/2 ML VIAL ONE (07:32)
[2018-09-30] MEDS ORDERED: *HR* FentaNYL (PF) 100 MCG/2 ML VIAL ONE (07:32)
--- NOTE | 2018-09-30 07:33 | Internal Med Progress Note ---
Hospitalist Progress Note - Encounter Date of Encounter: 09/30/18 Time of Encounter: 09:00 - Subjective Interval History: No acute events overnight - Exam Vitals: Temp Pulse Resp BP Pulse Ox 98.3 F 58 16 113/71 95 09/30/18 06:32 09/30/18 06:32 09/30/18 06:32 09/30/18 06:32 09/30/18 06:32 Exam: . Gen. Pt is non verbal at baseline. Alert CVS. S1 S2 WNL Resp CTAB GI. 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 GCS 11. VR 1 - Assessment and Plan (1) Sepsis Current Visit: Yes Status: Acute Assessment and Plan: Pt came in with sepsis secondary to pneumonia with leukocytosis and a fever of 101 Continue zosyn and azithromycin Pt continues to have intermittent fever spikes with dense left lower lobe consolidation Pulmonary consulted and plan for bronchoscopy today (2) Pneumonia Current Visit: Yes Status: Acute Assessment and Plan: Pt came in with sepsis secondary to pneumonia with leukocytosis and a fever of 101 Continue zosyn and azithromycin Pt continues to have intermittent fever spikes with dense left lower lobe consolidation Pulmonary consulted and plan for bronchoscopy today (3) Normocytic anemia Current Visit: Yes Status: Chronic Assessment and Plan: Hgb stable, will cont. monitor H&H. (4) Seizure disorder Current Visit: Yes Status: Chronic Assessment and Plan: Continue depakote (5) Mental retardation Current Visit: Yes Status: Chronic Assessment and Plan: Stable. No acute intervention (6) Malnutrition Current Visit: Yes Status: Acute Assessment and Plan: Recommendation was to place a peg tube for future feeding onn prior admission was declined by his power of corporate associate attorney declined. Continue feeds as tolerated (7) DVT prophylaxis Current Visit: Yes Status: Acute Assessment and Plan: We will place SCDs - Time Spent with Patient Total time spent is greater than 50% in coordination of care (as documented) at patient's floor/unit and/or counseling patient: Internal Medicine: Result - Labs CBC & Chem 7: 09/30/18 03:49 09/30/18 03:49 Labs: Short CBC 09/30/18 Range/Units 03:49 WBC 7.5 (4.3-11.1) K/mcL Hgb 12.7 L (12.9-16.9) g/dL Hct 38.7 (37.5-50.1) % Plt Count 242 (140-400) K/mcL Neutrophils # 4.9 (1.6-8.9) K/mcL BMP 09/30/18 03:49 Sodium 141 Potassium 4.1 Chloride 100 Carbon Dioxide 30 H BUN 7 Creatinine 0.82 Glucose 94 Calcium 9.1 - ABG Interpretation ABG results: ABG ABG pH 7.44 pH Units (7.32-7.45) 09/26/18 11:00 ABG pCO2 46 mmHg (35-45) H 09/26/18 11:00 ABG pO2 84 mmHg (85-104) L 09/26/18 11:00 ABG O2 Saturation 97 % (95-98) 09/26/18 11:00 PT/INR, D-dimer PT 14.2 Seconds (9.4-12.1) H 09/30/18 03:49 Consult Discharge Plan - Plan Referrals: Daniel Hester MD [Primary Care Provider] - (2) Pneumonia Qualifiers: Pneumonia type: aspiration pneumonia Aspiration pneumonia type: due to regurgitated food Laterality: left Lung location: lower lobe of lung Qualified Code(s): J69.0 - Pneumonitis due to inhalation of food and vomit (6) Malnutrition Qualifiers: Qualified Code(s): E46 - Unspecified protein-calorie malnutrition
[2018-09-30] MEDS: lamoTRIgine 25 MG TABLET PO SCH ×3 (08:31→21:57)
[2018-09-30] MEDS ORDERED: Albuterol 2.5 MG/3 ML NEBULIZER IH ONE (10:26)
[2018-09-30] MEDS ORDERED: Albuterol 2.5 MG/3 ML NEBULIZER ONE (10:27)
--- NOTE | 2018-09-30 10:54 | Anesthesia Evaluation Post Op ---
Date of Encounter: 09/30/18 Time of Encounter: 10:54 - Vital Signs Vital Signs: Vital Signs/O2 Sat, Most Current Temp Pulse Resp BP Pulse Ox 98.5 F 77 24 124/83 94 09/30/18 10:27 09/30/18 10:47 09/30/18 10:47 09/30/18 10:47 09/30/18 10:47 - Lungs Lungs: Clear Ascult./Percussion - Airway Airway: Non-obstructed - Cardiovascular Regular Rate - Mental Status Mental Status: Alert & Oriented, Answers Appropriately - Pain Pain Scale: 0 Pain Scale used: Numeric (1 - 10) - Nausea Vomiting Nausea Vomiting: Not Present - Hydration Hydration: NPO, Has not voided - Discharge PostOp Status: Transfer Patient to floor
--- NOTE | 2018-09-30 13:01 | Pulmonology Progress Note ---
Date of Encounter: 09/30/18 Time of Encounter: 08:00 Assessment and Plan (1) Aspiration pneumonia Current Visit: No Status: Acute Aspiration pneumonia and did a bronchoscopy with BAL patient had a different anatomy with the separate takeoff of the right upper lobe bronchus procedure went well left lower lobe lobar airways with mucosal erythema he has some with mucous plugs samples were sent. Qualifiers: Aspiration pneumonia type: unspecified Laterality: left Lung location: lower lobe of lung Qualified Code(s): J69.0 - Pneumonitis due to inhalation of food and vomit Subjective Principal diagnosis: Left lower lobe pneumonia Interval history: No acute events overnight spoke with the father and caregiver often bronchoscopy risk and benefit they wish to proceed with bronchoscopy. Objective PUL Vital signs: Last Vital Signs Temp 98.4 F 09/30/18 10:57 Pulse 73 09/30/18 10:57 Resp 21 09/30/18 10:57 BP 141/84 09/30/18 10:57 Pulse Ox 95 09/30/18 10:57 General appearance: no acute distress ENT: oropharynx moist Neck: supple Auscultation: bilateral: rales (Minimal scattered rales) Cardiovascular: regular rate and rhythm Gastrointestinal: hypoactive bowel sounds Extremities: no edema unable to assess due to mental status (Unable to assess mental status because of some background cerebral palsy contractures at baseline) Results - Laboratory Findings CBC and BMP: 09/30/18 03:49 09/30/18 03:49 ABG ABG pH 7.44 pH Units (7.32-7.45) 09/26/18 11:00 ABG pCO2 46 mmHg (35-45) H 09/26/18 11:00 ABG pO2 84 mmHg (85-104) L 09/26/18 11:00 ABG O2 Saturation 97 % (95-98) 09/26/18 11:00 PT/INR, D-dimer PT 14.2 Seconds (9.4-12.1) H 09/30/18 03:49 Abnormal lab findings: Abnormal lab results WBC 12.1 K/mcL (4.3-11.1) H 09/27/18 05:05 Hgb 12.7 g/dL (12.9-16.9) L 09/30/18 03:49 Hct 37.1 % (37.5-50.1) L 09/28/18 04:54 MCH 27.4 pg (28.0-33.3) L 09/30/18 03:49 MPV 8.7 fL (9.4-12.4) L 09/30/18 03:49 9.8 K/mcL (1.6-8.9) H 09/27/18 05:05 Present (Not Present) A 09/30/18 03:49 PT 14.2 Seconds (9.4-12.1) H 09/30/18 03:49 ABG pCO2 46 mmHg (35-45) H 09/26/18 11:00 ABG pO2 84 mmHg (85-104) L 09/26/18 11:00 ABG HCO3 31 mEq/L (21-27) H 09/26/18 11:00 ABG Total CO2 32 mEq/L (20-26) H 09/26/18 11:00 ABG Base Excess 6 mEq/L (-2 to 3) H 09/26/18 11:00 Carbon Dioxide 30 mEq/L (23-29) H 09/30/18 03:49 Glucose 113 mg/dL (70-105) H 09/29/18 05:00 Magnesium 1.5 mg/dL (1.6-2.6) L 09/28/18 04:54 ALT 6 Units/L (7-52) L 09/27/18 05:05 B-Natriuretic Peptide 150 pg/mL (Less than 100) H 09/26/18 10:20 3.6 g/dL (2.4-3.5) H 09/27/18 05:05 1.0 (1.1-2.2) L 09/27/18 05:05 38 mg/dL (40-59) L 09/27/18 05:05 0.63 ng/mL (0.00-0.15) H 09/29/18 14:22 - Microbiology Findings Microbiology Findings: Microbiology, Last 48 Hours 09/30/18 10:42 Respiratory Culture - Preliminary Left Lower Lobe Lung 09/28/18 18:30 Legionella Antigen - Final Urine,Clean Catch Streptococcus pneumoniae Antigen (M - Final 09/28/18 11:05 Blood Culture - Preliminary Peripheral Venipuncture Culture is incubating and being continuously monitored for growth. Final report to follow. 09/28/18 11:10 Blood Culture - Preliminary Peripheral Venipuncture Culture is incubating and being continuously monitored for growth. Final report to follow. - Clinical Findings Intake & Output: Intake & Output 09/29/18 09/30/18 09/30/18 23:59 07:59 15:59 Intake Total 350 / 1204 100 / 100 Balance 350 / 1204 100 / 100 Weight 46.3 kg Consult Discharge Plan - Plan Referrals: Daniel Hester MD [Primary Care Provider] -
[2018-09-30] MEDS: Azithromycin 500 MG in D5% in Water 250 ML IVPB SCH (14:39)
[2018-09-30 14:40] LABS: Appearance of Body Fluid Cloudy (Clear); Volume of Body Fluid 21 mL
[2018-09-30] MEDS: Divalproex (24 HR) 250 MG TABLET PO SCH (21:57)
[2018-09-30] MEDS: Divalproex (12 HR) 250 MG TABLET PO SCH (21:57)
[2018-10-01] MEDS: Piperacillin/Tazobactam 3.375 GM in 0.9 % Sodium Chloride Mini Bag 100 ML IVPB SCH ×2 (00:25→09:08)
[2018-10-01] MEDS: cloNIDine HCl 0.1 MG TABLET PO SCH ×2 (04:25→09:07)
[2018-10-01] MEDS: *HR* Heparin 5,000 UNIT/ML VIAL SQ SCH (05:26)
[2018-10-01 05:46] LABS: Basophils % 0.2 %; Eosinophils % 0.3 %; Hematocrit 37.8 % (37.5-50.1); Hemoglobin 12.3 g/dL (12.9-16.9); Immature Granulocytes % 0.5 % (0-4); Lymphocytes % 23.3 %; Mean Corpuscular HGB Conc 32.5 g/dL (31.6-35.5); Mean Corpuscular Hemoglobin 27.2 pg (28.0-33.3); Mean Corpuscular Volume 83.4 fL (83.0-100.0); Mean Platelet Volume 9.3 fL (9.4-12.4); Monocytes # 0.8 K/mcL (0.0-1.3); Monocytes % 9.2 %; Neutrophils # 5.7 K/mcL (1.6-8.9); Platelet Count 299 K/mcL (140-400); Red Blood Count 4.53 M/mcL (4.19-5.50); Red Cell Distribution Width 12.7 % (11.5-14.5); Segmented Neutrophils % 66.5 %; White Blood Count 8.6 K/mcL (4.3-11.1)
[2018-10-01 06:06] LABS: Blood Urea Nitrogen 14 mg/dL (6-20); Calcium 9.1 mg/dL (8.6-10.3); Carbon Dioxide 27 mEq/L (23-29); Chloride 99 mEq/L (98-107); Glucose 98 mg/dL (70-105); Magnesium 1.5 mg/dL (1.6-2.6); Osmolality,Calculated 284 (280-300); Phosphorous 3.5 mg/dL (2.7-4.5); Potassium 3.8 mEq/L (3.5-5.1); Sodium 137 mEq/L (136-145)
[2018-10-01 06:16] LABS: Platelet Estimate Normal (Normal)
[2018-10-01 06:21] LABS: BUN/Creatinine Ratio 18 (6-26); eGFR For African Americans > 60 (> 60); eGFR For Non-African Americans > 60 (> 60)
--- NOTE | 2018-10-01 07:47 | Discharge Summary ---
Date of Encounter: 10/01/18 Time of Encounter: 10:00 - Discharge Diagnosis (1) Sepsis Priority: Primary Status: Acute Assessment and Plan: 30 year old male with past medical history of mental retardation and seizure disorder who presented with productive cough and chills as per his caregiver. The patient is nonverbal and no further history was able to be obtained. The patient was evaluated by the ER and CXR revealed pneumonia. Reviewing the patient records revealed he was diagnosed with sepsis due to aspiration pneumonia that was complicated by right sided pleural effusion in 2018. The patient was treated by antibiotics and recommendation was to place a peg tube for future feeding however his power of privacy attorney declined. He was assessed with with sepsis secondary to recurrent aspiration pneumonia with leukocytosis and a fever of 101. He was started on zosyn and azithromycin. He continued to have intermittent fever spikes with dense left lower lobe consolidation and pulmonary was consulted for a bronchoscopy. Bronchoscopy showed mucous plugs with dense left lower lobe infiltrate. Pulmonary spoke with his caregiver and advised them that he'll need a PEG tube in the near future or he'll continue to have recurrent aspiration pneumonia. He was discharged to complete a course of augmentin. 35 minutes was spent discharging this patient Qualifiers: Qualified Code(s): A41.9 - Sepsis, unspecified organism (2) Pneumonia Priority: Primary Status: Acute Qualifiers: Pneumonia type: aspiration pneumonia Aspiration pneumonia type: due to regurgitated food Laterality: left Lung location: lower lobe of lung Qualified Code(s): J69.0 - Pneumonitis due to inhalation of food and vomit (3) Normocytic anemia Priority: Primary Status: Chronic (4) Seizure disorder Priority: Primary Status: Chronic (5) Mental retardation Priority: Primary Status: Chronic (6) Malnutrition Priority: Primary Status: Acute Qualifiers: Qualified Code(s): E46 - Unspecified protein-calorie malnutrition (7) DVT prophylaxis Priority: Primary Status: Acute Hospital course: Mr. Petersen is a 33 year old male - Time Spent with Patient Total time spent providing and/or coordinating discharge services: - Discharge Medications Prescriptions: New Benzonatate [Tessalon] 200 mg PO TID PRN #60 capsule PRN Reason: Cough Amoxicillin/Clavulanate [Augmentin] 875 mg PO BIDWM 3 Days #6 tablet Lactobacillus [Culturelle] 1 each PO BID #14 cap.sprink Continued lamoTRIgine [Lamictal] 75 mg PO QAM AND QHS Divalproex (24 HR) [Depakote ER (24 HR)] 250 mg PO HS Divalproex Sodium [Depakote] 500 mg PO HS cloNIDine HCl [CloNIDine HCl] 0.1 mg PO QID Home Medications: Divalproex (24 HR) [Depakote ER (24 HR)] 250 mg PO HS 11/21/15 [History] Divalproex Sodium [Depakote] 500 mg PO HS 11/21/15 [History] lamoTRIgine [Lamictal] 75 mg PO QAM AND QHS 11/21/15 [History] cloNIDine HCl [CloNIDine HCl] 0.1 mg PO QID 09/26/18 [History] Amoxicillin/Clavulanate [Augmentin] 875 mg PO BIDWM 3 Days #6 tablet 10/01/18 [Rx] Benzonatate [Tessalon] 200 mg PO TID PRN #60 capsule 10/01/18 [Rx] Lactobacillus [Culturelle] 1 each PO BID #14 cap.sprink 10/01/18 [Rx] Allergies/Adverse Reactions: Allergy/AdvReac Type Severity Reaction Status Date / Time No Known Allergies Allergy Verified 11/21/15 12:07 Date of admission: 09/26/18 12:57 Primary care physician: Daniel Hester MD Consults: 09/27/18 05:04 Consult to Nurse Navigator [CONS] Routine Comment: 09/29/18 13:55 Consult to Pulmonology [CONS] Routine Consulting Provider: [facility] Reason for Consult: persistent low grade fevers with pneumonia Call Completed: Yes - Constitutional Vitals: Temp Pulse Resp BP Pulse Ox 98.8 F 53 15 133/80 95 10/01/18 06:31 10/01/18 06:31 10/01/18 06:31 10/01/18 06:31 10/01/18 06:31 Exam: . Gen. Pt is non verbal at baseline. Alert CVS. S1 S2 WNL Resp CTAB GI. SOft, NT, ND, +BS EXt. 2+ pulses FLOWER CHENILLER. GCS 11. VR 1 - Patient Status Disposition: Home, Self-Care Condition: Good - Discharge Instructions Instructions: Sepsis (DC), Pneumonia (DC) Follow Up With: Manju Duval CNP [Advanced Practice Nurse] - 10/08/18 1:00 pm
[2018-10-01] MEDS: lamoTRIgine 25 MG TABLET PO SCH (09:07)
[2018-10-01 10:15] VITALS: BP 113/70
== END 2018-10-01 14:15 | disposition home or self-care (01) | DRG 871 ==
LOC: EMEROOARM 09:52 → 3ANU 12:57
PROVIDERS: ADMIT Internal Medicine Nephrology; ATTEND Internal Medicine Nephrology

== ENCOUNTER 2019-05-08 19:06 | Inpatient (IN) ==
[2019-05-08] MEDS ORDERED: 0.9 % Sodium Chloride 1,000 ML IVC ONE (19:25)
[2019-05-08] MEDS ORDERED: Ketorolac 30 MG/ML VIAL IVP ONE (19:25)
[2019-05-08 19:54] LABS: Basophils % 0.2 %; Hematocrit 40.4 % (37.5-50.1); Hemoglobin 13.7 g/dL (12.9-16.9); Immature Granulocytes % 0.5 % (0-4); Lymphocytes # 0.9 K/mcL (0.6-4.6); Lymphocytes % 8.6 %; Mean Corpuscular HGB Conc 33.9 g/dL (31.6-35.5); Mean Corpuscular Hemoglobin 28.1 pg (28.0-33.3); Mean Platelet Volume 9.4 fL (9.4-12.4); Monocytes # 0.6 K/mcL (0.0-1.3); Monocytes % 5.5 %; Neutrophils # 8.7 K/mcL (1.6-8.9); Platelet Count 152 K/mcL (140-400); Red Blood Count 4.87 M/mcL (4.19-5.50); Red Cell Distribution Width 13.4 % (11.5-14.5); Segmented Neutrophils % 85.2 %; White Blood Count 10.3 K/mcL (4.3-11.1)
[2019-05-08 20:06] LABS: Bilirubin,Urine Negative (Negative); Blood,Urine Negative (Negative); Clarity,Urine Clear (Clear); Color,Urine Yellow (Yellow); Glucose,Urine (UA) Normal (Normal); Ketones,Urine Trace mg/dL (Negative); Leukocyte Esterase,Urine Negative (Negative); Nitrite,Urine Negative (Negative); Protein,Urine 100 mg/dL (Neg-Trace); Specific Gravity,Urine > 1.030 (1.010-1.025); Urobilinogen,Urine Normal (Normal)
[2019-05-08 20:10] LABS: Bacteria,Urine None Seen per hpf (None-Few); Squamous Epithelial Cell,Urine Many per lpf (None-Few); WBC,Urine 0-3 per hpf (0-3)
[2019-05-08 20:17] LABS: Alanine Aminotransferase 12 Units/L (7-52); Albumin 3.9 g/dL (3.5-5.7); Albumin/Globulin Ratio 1.1 (1.1-2.2); Alkaline Phosphatase 43 Units/L (34-104); Aspartate Amino Transferase 32 Units/L (13-39); BUN/Creatinine Ratio 16 (6-26); Bilirubin,Direct 0.1 mg/dL (0.0-0.2); Bilirubin,Indirect 0.3 mg/dL (0.0-1.0); Bilirubin,Total 0.4 mg/dL (0.3-1.0); Blood Urea Nitrogen 18 mg/dL (6-20); Calcium 9.4 mg/dL (8.6-10.3); Carbon Dioxide 27 mEq/L (23-29); Chloride 98 mEq/L (98-107); Globulin 3.4 g/dL (2.4-3.5); Glucose 113 mg/dL (70-105); Osmolality,Calculated 285 (280-300); Potassium 3.9 mEq/L (3.5-5.1); Sodium 136 mEq/L (136-145); Total Protein 7.3 g/dL (6.4-8.9); Troponin I < 0.03 ng/mL (< 0.04); eGFR For African Americans > 60 (> 60); eGFR For Non-African Americans > 60 (> 60)
[2019-05-08 20:31] LABS: Hyaline Casts,Urine None Seen per lpf (None-Few)
[2019-05-08] MEDS ORDERED: cefTRIAXone 1,000 MG in Water for inj. (sterile) 10 ML IVP ONE (20:31)
[2019-05-08] MEDS ORDERED: Azithromycin 500 MG in 0.9 % Sodium Chloride 250 ML IVPB ONE (20:31)
[2019-05-08] MEDS ORDERED: Acetaminophen 325 MG TABLET PO PRN (23:12)
[2019-05-08] MEDS ORDERED: Naloxone 0.4 MG/ML INJ IVP PRN (23:12)
[2019-05-08] MEDS ORDERED: Ondansetron 4 MG/2 ML VIAL IVP PRN (23:12)
[2019-05-08] MEDS ORDERED: Ringers Solution, Lactated 1,000 ML IVC ONE (23:44)
[2019-05-09 00:21] LABS: Alanine Aminotransferase 12 Units/L (7-52); Albumin 3.5 g/dL (3.5-5.7); Albumin/Globulin Ratio 1.1 (1.1-2.2); Alkaline Phosphatase 41 Units/L (34-104); Aspartate Amino Transferase 34 Units/L (13-39); BUN/Creatinine Ratio 17 (6-26); Bilirubin,Total 0.4 mg/dL (0.3-1.0); Blood Urea Nitrogen 15 mg/dL (6-20); Calcium 8.4 mg/dL (8.6-10.3); Carbon Dioxide 24 mEq/L (23-29); Chloride 102 mEq/L (98-107); Creatine Kinase 823 Units/L (30-223); Globulin 3.1 g/dL (2.4-3.5); Glucose 90 mg/dL (70-105); Osmolality,Calculated 280 (280-300); Potassium 3.8 mEq/L (3.5-5.1); Sodium 135 mEq/L (136-145); Total Protein 6.6 g/dL (6.4-8.9); eGFR For African Americans > 60 (> 60); eGFR For Non-African Americans > 60 (> 60)
[2019-05-09 00:22] LABS: Basophils % 0.2 %; Hematocrit 39.1 % (37.5-50.1); Immature Granulocytes % 0.3 % (0-4); Lymphocytes # 1.1 K/mcL (0.6-4.6); Mean Corpuscular HGB Conc 33.2 g/dL (31.6-35.5); Mean Corpuscular Hemoglobin 28.7 pg (28.0-33.3); Mean Corpuscular Volume 86.3 fL (83.0-100.0); Mean Platelet Volume 9.6 fL (9.4-12.4); Monocytes # 0.6 K/mcL (0.0-1.3); Monocytes % 6.4 %; Neutrophils # 8.2 K/mcL (1.6-8.9); Platelet Count 140 K/mcL (140-400); Red Blood Count 4.53 M/mcL (4.19-5.50); Red Cell Distribution Width 13.3 % (11.5-14.5); Segmented Neutrophils % 82.1 %; White Blood Count 9.9 K/mcL (4.3-11.1)
[2019-05-09] MEDS: Ringers Solution, Lactated 1,000 ML IVC SCH ×2 (01:36→16:28)
[2019-05-09 02:42] LABS: Basophils % 0.2 %; Hematocrit 35.5 % (37.5-50.1); Hemoglobin 11.9 g/dL (12.9-16.9); Immature Granulocytes % 0.3 % (0-4); Lymphocytes # 0.9 K/mcL (0.6-4.6); Lymphocytes % 10.2 %; Mean Corpuscular HGB Conc 33.5 g/dL (31.6-35.5); Mean Corpuscular Hemoglobin 28.7 pg (28.0-33.3); Mean Corpuscular Volume 85.7 fL (83.0-100.0); Mean Platelet Volume 9.4 fL (9.4-12.4); Monocytes # 0.8 K/mcL (0.0-1.3); Neutrophils # 7.4 K/mcL (1.6-8.9); Platelet Count 125 K/mcL (140-400); Red Blood Count 4.14 M/mcL (4.19-5.50); Red Cell Distribution Width 13.3 % (11.5-14.5); Segmented Neutrophils % 80.3 %; White Blood Count 9.2 K/mcL (4.3-11.1)
[2019-05-09 02:43] LABS: BUN/Creatinine Ratio 16 (6-26); Blood Urea Nitrogen 13 mg/dL (6-20); Calcium 8.3 mg/dL (8.6-10.3); Carbon Dioxide 25 mEq/L (23-29); Chloride 102 mEq/L (98-107); Glucose 93 mg/dL (70-105); Magnesium 1.3 mg/dL (1.6-2.6); Osmolality,Calculated 280 (280-300); Potassium 3.7 mEq/L (3.5-5.1); Sodium 135 mEq/L (136-145); eGFR For African Americans > 60 (> 60); eGFR For Non-African Americans > 60 (> 60)
[2019-05-09 03:17] LABS: Adenovirus Not Detected (Not Detect); Coronavirus 229E Not Detected (Not Detect); Coronavirus HKU1 Not Detected (Not Detect); Coronavirus NL63 Not Detected (Not Detect); Coronavirus OC43 Not Detected (Not Detect); Human Metapneumovirus Not Detected (Not Detect); Human Rhinovirus/Enterovirus Not Detected (Not Detect)
[2019-05-09 03:19] LABS: Bordetella Pertussis Not Detected (Not Detect); Chlamydophila pneumoniae Not Detected (Not Detect); Influenza A Subtype 2009 H1 DETECTED (Not Detect); Influenza B Not Detected (Not Detect); Mycoplasma pneumoniae Not Detected (Not Detect); Parainfluenza Virus 1 Not Detected (Not Detect); Parainfluenza Virus 2 Not Detected (Not Detect); Parainfluenza Virus 3 Not Detected (Not Detect); Parainfluenza Virus 4 Not Detected (Not Detect); Respiratory Syncytial Virus Not Detected (Not Detect)
[2019-05-09] MEDS ORDERED: Acetaminophen IV 1,000 MG/100 ML INFUS..BTL IVPB ONE (04:31)
[2019-05-09] MEDS: *HR* Heparin 5,000 UNIT/ML VIAL SQ SCH ×3 (06:56→22:54)
[2019-05-09] MEDS ORDERED: levoFLOXacin 500 MG/100 ML 500 MG/100 ML BAG IVPB SCH (09:00)
[2019-05-09] MEDS ORDERED: *HR* LORazepam 2 MG/ML VIAL IVP ONE (09:11)
[2019-05-09] MEDS: cloNIDine HCl 0.1 MG TABLET PO SCH ×4 (10:56→22:59)
[2019-05-09] MEDS: lamoTRIgine 25 MG TABLET PO SCH ×2 (10:57→22:59)
[2019-05-09] MEDS ORDERED: Ibuprofen 400 MG TABLET PO PRN (16:46)
[2019-05-09] MEDS ORDERED: Divalproex (12 HR) 500 MG TABLET PO SCH (21:00)
[2019-05-09] MEDS ORDERED: Divalproex (24 HR) 250 MG TABLET PO SCH (21:00)
[2019-05-09] MEDS ORDERED: Acetaminophen IV 1,000 MG/100 ML INFUS..BTL IVPB PRN (21:37)
[2019-05-09] MEDS: Valproic Acid INJ 250 MG in 0.9 % Sodium Chloride 100 ML IVPB SCH (23:30)
[2019-05-10] MEDS ORDERED: Valproic Acid INJ 250 MG in 0.9 % Sodium Chloride 100 ML IVPB SCH
[2019-05-10 04:37] LABS: Hematocrit 40.4 % (37.5-50.1); Mean Corpuscular HGB Conc 33.4 g/dL (31.6-35.5); Mean Corpuscular Hemoglobin 28.4 pg (28.0-33.3); Mean Corpuscular Volume 84.9 fL (83.0-100.0); Mean Platelet Volume 9.6 fL (9.4-12.4); Platelet Count 134 K/mcL (140-400); Red Blood Count 4.76 M/mcL (4.19-5.50); Red Cell Distribution Width 12.9 % (11.5-14.5); White Blood Count 7.2 K/mcL (4.3-11.1)
[2019-05-10 04:38] LABS: Hemoglobin 13.5 g/dL (12.9-16.9)
[2019-05-10 05:02] LABS: BUN/Creatinine Ratio 9 (6-26); Blood Urea Nitrogen 8 mg/dL (6-20); Calcium 8.9 mg/dL (8.6-10.3); Carbon Dioxide 28 mEq/L (23-29); Chloride 97 mEq/L (98-107); Glucose 97 mg/dL (70-105); Osmolality,Calculated 278 (280-300); Potassium 4.3 mEq/L (3.5-5.1); Sodium 135 mEq/L (136-145); eGFR For African Americans > 60 (> 60); eGFR For Non-African Americans > 60 (> 60)
[2019-05-10] MEDS: Ringers Solution, Lactated 1,000 ML IVC SCH ×2 (05:43→05:53)
[2019-05-10] MEDS: *HR* Heparin 5,000 UNIT/ML VIAL SQ SCH ×2 (05:43→12:36)
[2019-05-10] MEDS ORDERED: Piperacillin/Tazobactam 3.375 GM in 0.9 % Sodium Chloride Mini Bag 100 ML IVPB SCH (08:00)
[2019-05-10] MEDS: lamoTRIgine 25 MG TABLET PO SCH (08:57)
[2019-05-10] MEDS: cloNIDine HCl 0.1 MG TABLET PO SCH ×3 (08:57→16:02)
[2019-05-10] MEDS: Valproic Acid INJ 250 MG in 0.9 % Sodium Chloride 100 ML IVPB SCH ×2 (09:00→16:00)
[2019-05-10] MEDS ORDERED: 0.9 % Sodium Chloride 1,000 ML IVC SCH (12:15)
[2019-05-10] MEDS: Piperacillin/Tazobactam 3.375 GM in 0.9 % Sodium Chloride Mini Bag 100 ML IVPB SCH ×2 (12:38→19:35)
[2019-05-10] MEDS: Acetaminophen IV 1,000 MG/100 ML INFUS..BTL IVPB PRN (13:39)
[2019-05-10] MEDS: 0.9 % Sodium Chloride 1,000 ML IVC SCH (17:36)
[2019-05-10] MEDS ORDERED: Divalproex (24 HR) 500 MG TABLET PO SCH (21:00)
[2019-05-11] MEDS: *HR* Heparin 5,000 UNIT/ML VIAL SQ SCH ×4 (01:33→20:40)
[2019-05-11] MEDS: Acetaminophen IV 1,000 MG/100 ML INFUS..BTL IVPB PRN (01:40)
[2019-05-11] MEDS: 0.9 % Sodium Chloride 1,000 ML IVC SCH (02:01)
[2019-05-11] MEDS: Valproic Acid INJ 250 MG in 0.9 % Sodium Chloride 100 ML IVPB SCH ×3 (02:02→17:13)
[2019-05-11] MEDS: Piperacillin/Tazobactam 3.375 GM in 0.9 % Sodium Chloride Mini Bag 100 ML IVPB SCH ×3 (04:22→20:22)
[2019-05-11] MEDS: lamoTRIgine 25 MG TABLET PO SCH ×5 (06:02→20:30)
[2019-05-11] MEDS: cloNIDine HCl 0.1 MG TABLET PO SCH ×7 (06:02→20:30)
[2019-05-11 06:14] LABS: Hematocrit 35.7 % (37.5-50.1); Hemoglobin 12.2 g/dL (12.9-16.9); Mean Corpuscular HGB Conc 34.2 g/dL (31.6-35.5); Mean Corpuscular Hemoglobin 28.2 pg (28.0-33.3); Mean Corpuscular Volume 82.4 fL (83.0-100.0); Mean Platelet Volume 9.4 fL (9.4-12.4); Platelet Count 139 K/mcL (140-400); Red Blood Count 4.33 M/mcL (4.19-5.50); Red Cell Distribution Width 12.9 % (11.5-14.5); White Blood Count 5.4 K/mcL (4.3-11.1)
[2019-05-11 06:40] LABS: BUN/Creatinine Ratio 16 (6-26); Blood Urea Nitrogen 13 mg/dL (6-20); Calcium 8.2 mg/dL (8.6-10.3); Carbon Dioxide 26 mEq/L (23-29); Chloride 101 mEq/L (98-107); Glucose 93 mg/dL (70-105); Osmolality,Calculated 286 (280-300); Potassium 3.5 mEq/L (3.5-5.1); Sodium 138 mEq/L (136-145); eGFR For African Americans > 60 (> 60); eGFR For Non-African Americans > 60 (> 60)
[2019-05-12] MEDS: Valproic Acid INJ 250 MG in 0.9 % Sodium Chloride 100 ML IVPB SCH ×3 (01:27→16:19)
[2019-05-12 04:53] LABS: ABG Base Excess 6 mEq/L (-2 to 3); ABG HCO3 30 mEq/L (21-27); ABG Oxygen Saturation 90 % (95-98); ABG PCO2 39 mmHg (35-45); ABG PH 7.49 pH Units (7.32-7.45); ABG PO2 55 mmHg (85-104); ABG TCO2 31 mEq/L (20-26)
[2019-05-12 05:47] LABS: Hematocrit 34.3 % (37.5-50.1); Hemoglobin 11.9 g/dL (12.9-16.9); Mean Corpuscular HGB Conc 34.7 g/dL (31.6-35.5); Mean Corpuscular Hemoglobin 28.5 pg (28.0-33.3); Mean Corpuscular Volume 82.3 fL (83.0-100.0); Mean Platelet Volume 9.4 fL (9.4-12.4); Platelet Count 153 K/mcL (140-400); Red Blood Count 4.17 M/mcL (4.19-5.50); White Blood Count 4.6 K/mcL (4.3-11.1)
[2019-05-12 06:04] LABS: BUN/Creatinine Ratio 14 (6-26); Blood Urea Nitrogen 11 mg/dL (6-20); Calcium 8.3 mg/dL (8.6-10.3); Carbon Dioxide 26 mEq/L (23-29); Chloride 101 mEq/L (98-107); Glucose 82 mg/dL (70-105); Osmolality,Calculated 282 (280-300); Potassium 3.5 mEq/L (3.5-5.1); Sodium 137 mEq/L (136-145); eGFR For African Americans > 60 (> 60); eGFR For Non-African Americans > 60 (> 60)
[2019-05-12] MEDS: *HR* Heparin 5,000 UNIT/ML VIAL SQ SCH ×3 (07:09→22:30)
[2019-05-12] MEDS: Piperacillin/Tazobactam 3.375 GM in 0.9 % Sodium Chloride Mini Bag 100 ML IVPB SCH ×2 (07:09→13:46)
[2019-05-12] MEDS: lamoTRIgine 25 MG TABLET PO SCH ×2 (09:02→22:30)
[2019-05-12] MEDS: cloNIDine HCl 0.1 MG TABLET PO SCH ×4 (09:02→22:30)
[2019-05-12] MEDS ORDERED: Bisacodyl 10 MG RECTAL SUPPOSITORY RC ONE (12:10)
[2019-05-12] MEDS: Ampicillin/Sulbactam 3,000 MG in 0.9 % Sodium Chloride Mini Bag 100 ML IVPB SCH (22:30)
[2019-05-13] MEDS: Valproic Acid INJ 250 MG in 0.9 % Sodium Chloride 100 ML IVPB SCH ×2 (00:43→09:06)
[2019-05-13] MEDS: Ampicillin/Sulbactam 3,000 MG in 0.9 % Sodium Chloride Mini Bag 100 ML IVPB SCH ×2 (04:49→11:28)
[2019-05-13] MEDS: *HR* Heparin 5,000 UNIT/ML VIAL SQ SCH ×2 (04:52→12:45)
[2019-05-13 05:25] LABS: Hemoglobin 11.9 g/dL (12.9-16.9); Mean Corpuscular Hemoglobin 27.8 pg (28.0-33.3); Mean Corpuscular Volume 81.8 fL (83.0-100.0); Mean Platelet Volume 9.3 fL (9.4-12.4); Platelet Count 169 K/mcL (140-400); Red Blood Count 4.28 M/mcL (4.19-5.50)
[2019-05-13 05:48] LABS: BUN/Creatinine Ratio 18 (6-26); Blood Urea Nitrogen 11 mg/dL (6-20); Calcium 8.7 mg/dL (8.6-10.3); Carbon Dioxide 27 mEq/L (23-29); Chloride 102 mEq/L (98-107); Glucose 86 mg/dL (70-105); Osmolality,Calculated 281 (280-300); Potassium 3.6 mEq/L (3.5-5.1); Sodium 136 mEq/L (136-145); eGFR For African Americans > 60 (> 60); eGFR For Non-African Americans > 60 (> 60)
[2019-05-13] MEDS: lamoTRIgine 25 MG TABLET PO SCH ×2 (09:08→11:56)
[2019-05-13] MEDS: cloNIDine HCl 0.1 MG TABLET PO SCH ×3 (09:08→12:39)
[2019-05-13 14:06] VITALS: BP 126/66
== END 2019-05-13 15:27 | disposition home or self-care (01) | DRG 871 ==
LOC: 2ANU 19:06 → EMEROOARM 19:06 → SUATTDRO 21:40 → 2ANU 22:01
PROVIDERS: ADMIT Pharmacist; ATTEND Family Medicine